=== PATIENT | female | born 1995 | race Caucasian/White ===

== ENCOUNTER 2024-03-02 21:28 | Emergency (ER) | payer OTHER ==
[2024-03-02] MEDS ORDERED: ONDANSETRON 4 MG/2 ML VIAL ONE (22:56)
[2024-03-02] MEDS ORDERED: NA CHLORIDE 0.9% 1,000 ML ONE (22:57)
[2024-03-02] MEDS ORDERED: KETOROLAC 30 MG/ML INJ ONE (22:57)
[2024-03-02 23:19] LABS: Specific Gravity 1.024 (1.005-1.030); Urine Bilirubin NEGATIVE (Negative); Urine Blood Negative (Negative); Urine Clarity Clear (Clear); Urine Color Yellow (Yellow); Urine Glucose NEGATIVE (Negative); Urine Ketones NEGATIVE (Negative); Urine Microscopic Reflex YN NO UMIC; Urine Nitrite NEGATIVE (Negative); Urine Protein NEGATIVE (Negative); Urine Urobilinogen Normal (Normal); Urine pH 5.5 (5.0-7.0)
[2024-03-02 23:25] LABS: Specific Gravity 1.024 (1.005-1.030)
[2024-03-02 23:29] LABS: Absolute Eosinophils 0.1 K/uL (0-0.5); Absolute Lymphocytes (CBC) 3.2 K/uL (0.7-4.9); Absolute Monocytes 0.6 K/uL (0.1-1.3); Absolute Neutrophil 7.5 K/uL (1.8-8.0); Basophils % 0.3 % (0-1.3); Eosinophils % 0.8 % (0-4.4); Hematocrit 40.2 % (36.0-45.0); Hemoglobin 13.6 g/dL (12.0-15.0); Lymphocytes % 27.9 % (15.3-44.8); MCH 31.1 pg (27.0-35.0); MCHC 33.8 g/dL (32.0-36.0); MCV 92.1 fL (80-100); MPV 7.6 fL (7.6-11.3); Monocytes % 5.7 % (3.3-12.3); Neutrophils % 65.3 % (41.7-73.7); Platelets 329 thou/uL (152-406); RBC Red Blood Cell Count 4.36 M/uL (3.86-4.86); Red Cell Distribution Width 12.8 % (12.1-15.2)
[2024-03-02 23:36] LABS: Albumin 3.9 g/dL (3.4-5.0); Anion Gap 9.9 mEq/L (5.0-15.0); Bilirubin Total 0.3 mg/dL (0.2-1.0); Globulin 3.9 g/dL (2.3-3.5); Potassium 3.9 mEq/L (3.5-5.1); Protein, Total 7.8 g/dL (6.4-8.2)
--- NOTE | 2024-03-03 00:16 | RAD REPORT ---
EXAM: US Pelvis Transvaginal CLINICAL HISTORY: The patient is 28 years old and is Female; left pelvic pain TECHNIQUE: Real-time transvaginal pelvic ultrasound with image documentation. Transvaginal imaging was used for better evaluation of the endometrium and adnexa. COMPARISON: No relevant prior studies available. FINDINGS: UTERUS/CERVIX: The uterus measures 7.1 x 4.2 x 5.6 cm. Several nabothian cysts are noted. The end ometrium measures 0.3 cm. No myometrial mass. RIGHT OVARY: The right ovary is not visualized secondary to bowel gas. LEFT OVARY: The left ovary measures 2.7 x 2.1 x 2.3 cm. Normal arterial and venous color Doppler and spectral waveform is present. A simple left ovarian cyst measuring 1.7 cm is noted. No follow-up imaging is recommended. Normal blood flow. FREE FLUID: No free fluid. BLADDER: Empty bladder which cannot be evaluated with this probe. IMPRESSION: Unremarkable pelvic ultrasound. Electronically signed by: Lea Pablo MD 03/03/2024 12:07 AM [facility] Due to temporary technical issues with the PACS/[employer] reporting system, reports are being signed by the in-house radiologist without review as a courtesy to ensure prompt reporting the interpreting radiologist is fully responsible for the content of the report. Transcribed Date/Time: 03/03/2024 12:15 AM
--- NOTE | 2024-03-03 01:05 | RAD REPORT ---
EXAM: CT Abdomen and Pelvis With Intravenous Contrast CLINICAL HISTORY: The patient is 28 years old and is Female; ABD PAIN TECHNIQUE: Axial computed tomography images of the abdomen and pelvis with intravenous contrast. Sagittal an d coronal reformatted images were created and reviewed. This CT exam was performed using one or more of the following dose reduction techniques: automated exposure control, adjustment of the mA a nd/or kV according to patient size, and/or use of iterative reconstruction technique. COMPARISON: No relevant prior studies available. FINDINGS: LUNG BASES: Unremarkable. No mass. No consolidation. ABDOMEN: LIVER: The liver is enlarged and fatty. GALLBLADDER AND BILE DUCTS: Surgical clips are present in the right upper quadrant, consistent wi th previous cholecystectomy. PANCREAS: No ductal dilation. No mass. SPLEEN: Unremarkable. ADRENALS: Unremarkable. No mass. KIDNEYS AND URETERS: Unremarkable. The kidneys enhance symmetrically. No obstructing renal or ure teral calculus is seen. No hydronephrosis or hydroureter. No perinephric fluid or stranding. STOMACH AND BOWEL: The stomach is moderately distended with food contents. The small bowel is loc ated within the right abdomen. The colon is located within the left abdomen. Findings suggest incidental nonrotation. There is no mucosal thickening or evidence of obstruction. PELVIS: APPENDIX: The appendix is normal in caliber without surrounding inflammation. BLADDER: The bladder is moderately distended. REPRODUCTIVE: A 2.3 cm left ovarian cyst is present. No follow-up imaging is recommended. The juana mendel and right ovary are normal. ABDOMEN and PELVIS: INTRAPERITONEAL SPACE: Unremarkable. No free air. No significant fluid collection. BONES/JOINTS: No acute fracture. SOFT TISSUES: The soft tissues are normal. VASCULATURE: Unremarkable. No abdominal aortic aneurysm. LYMPH NODES: Unremarkable. No enlarged lymph nodes. IMPRESSION: No acute findings on this contrasted CT of the abdomen and pelvis to explain the patient's symptoms . Electronically signed by: Lea Pablo MD 03/03/2024 01:00 AM CDT RP Due to temporary technical issues with the PACS/[employer] reporting system, reports are being kerry d by the in-house radiologist without review as a courtesy to ensure prompt reporting the interpreting radiologist is fully responsible for the content of the report. Transcribed Date/Time: 03/03/2024 1:05 AM
--- NOTE | 2024-03-03 01:11 | ER ---
Nurse's Notes [facility] Name: Yenny Waters Age: 28 yrs Sex: Female : 1995 Arrival Date: 03/02/2024 Time: 21:28 Bed 11 Private MD: Diagnosis: Other and unspecified ovarian cysts;Left ovarian cyst, Acute left pelvic pain Presentation: 03/02 21:46 Chief complaint: Patient states: left lower quadrant abdominal pain ever since getting ha1 a new control device. 21:46 Coronavirus screen: Vaccine status: Patient reports being unvaccinated. Ebola Screen: ha1 No symptoms or risks identified at this time. Initial Sepsis Screen: Does the patient meet any 2 criteria? No. Patient's initial sepsis screen is negative. Does the patient have a suspected source of infection? No. Patient's initial sepsis screen is negative. Risk Assessment: Do you want to hurt yourself or someone else? Patient reports no desire to harm self or others. Onset of symptoms was March 02, 2024. 21:46 Method Of Arrival: Ambulatory ha1 21:46 Acuity: CHASIDY 3 ha1 Triage Assessment: 21:46 General: Appears comfortable, Behavior is calm, cooperative. Pain: Complains of pain in ha1 left lower quadrant Pain does not radiate. Pain currently is 8 out of 10 on a pain scale. Quality of pain is described as crampy. Neuro: Level of Consciousness is awake, alert, obeys commands, Oriented to person, place, time, situation. Cardiovascular: Capillary refill < 3 seconds Patient's skin is warm and dry. Respiratory: Airway is patent Respiratory effort is even, unlabored, Respiratory pattern is regular, symmetrical. GI: Abdomen is flat, non-distended, Reports lower abdominal pain. 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 - Infectious Disease History:: Denies. - Social history:: Smoking status: Patient denies any tobacco usage or history of. - Family history:: not pertinent. Screenin:32 [facility] ED Fall Risk Assessment (Adult) History of falling in the last 3 months, lg3 including since admission No falls in past 3 months (0 pts) Confusion or Disorientation No (0 pts) Intoxicated or Sedated No (0 pts) Impaired Gait No (0 pts) Mobility Assist Device Used No (0 pt) Altered Elimination No (0 pt) Score/Fall Risk Level 0 - 2 = Low Risk Oriented to surroundings, Maintained a safe environment, Educated pt \T\ family on fall prevention, incl call for assistance when getting out of bed, Assessed \T\ reinforced patient's understanding of fall precautions. Abuse screen: Denies threats or abuse. Denies injuries from another. Nutritional screening: No deficits noted. Tuberculosis screening: No symptoms or risk factors identified. Assessment: 23:32 General: Appears in no apparent distress. comfortable, Behavior is calm, cooperative. lg3 Pain: Complains of pain in left lower quadrant Pain does not radiate. Pain currently is 4 out of 10 on a pain scale. Quality of pain is described as crampy. Neuro: No deficits noted. Miller Agitation-Sedation Scale (RASS): 0 - Alert and Calm Level of Consciousness is awake, alert, obeys commands, Oriented to person, place, time, situation. Cardiovascular: No deficits noted. Denies chest pain, shortness of breath, Capillary refill < 3 seconds Clubbing of nail beds is absent JVD is absent Patient's skin is warm and dry. Respiratory: No deficits noted. Airway is patent Respiratory effort is even, unlabored, Respiratory pattern is regular, symmetrical. GI: No deficits noted. Abdomen is flat, non-distended, Bowel sounds present X 4 quads. Abd is soft X 4 quads Abdomen is tender to palpation in left lower quadrant. : No deficits noted. No signs and/or symptoms were reported regarding the genitourinary system. EENT: No deficits noted. No signs and/or symptoms were reported regarding the EENT system. Derm: No deficits noted. No signs and/or symptoms reported regarding the dermatologic system. Skin is intact, is healthy with good turgor, Skin is dry, Skin is normal, Skin temperature is warm. Musculoskeletal: No deficits noted. No signs and/or symptoms reported regarding the musculoskeletal system. Circulation, motion, and sensation intact. Range of motion: intact in all extremities. 03/03 00:45 Reassessment: Patient and/or family updated on plan of care and expected duration. Pain ha1 level reassessed. Patient is alert, oriented x 3, equal unlabored respirations, skin warm/dry/pink. Patient denies pain at this time. Patient states feeling better. Patient states symptoms have improved. Vital Signs: 03/02 21:46 BP 131 / 84; Pulse 93; Resp 17 S; Temp 98.2(T); Pulse Ox 96% on R/A; Weight 63.96 kg; ha1 Height 5 ft. 4 in. ; 03/03 00:00 BP 118 / 58; Pulse 68; Resp 17 S; Pulse Ox 100% on R/A; ha1 01:00 BP 122 / 72; Pulse 78; Resp 17 S; Pulse Ox 100% on R/A; ha1 03/02 21:46 Body Mass Index 24.20 (63.96 kg, 162.56 cm) ha1 [place] Coma Score: 03:46 Eye Response: spontaneous(4). Motor Response: obeys commands(6). Verbal Response: sp4 oriented(5). Total: 15. ED Course: 03/02 21:32 Patient arrived in ED. gm2 21:38 Oz Reynolds MD is Attending Physician. sp4 21:46 Arm band placed on right wrist. ha1 22:51 Ree Campbell RN is Primary Nurse. lg3 22:57 Triage completed. ha1 23:00 Initial lab(s) drawn, by ED staff, sent to lab. Urine collected: clean catch specimen, lg3 clear. Inserted saline lock: 22 gauge in right antecubital area, using aseptic technique. Blood collected. Flushed with 10 mL NS. 23:32 Patient has correct armband on for positive identification. Placed in gown. Bed in low lg3 position. Call light in reach. Side rails up X 1. Client placed on continuous cardiac and pulse oximetry monitoring. NIBP monitoring applied. Door closed. Noise minimized. Warm blanket given. Pillow given. Family accompanied patient. 23:41 Transvaginal Study Probe In Process Unspecified. EDMS 03/03 00:33 CT Abd/Pelvis - IV Contrast Only In Process Unspecified. EDMS 01:31 No provider procedures requiring assistance completed. IV discontinued, intact, ha1 bleeding controlled, No redness/swelling at site. Pressure dressing applied. 01:32 Provided Education on: medication administration and following with OB. ha1 Administered Medications: 03/02 23:01 Drug: Ondansetron IVP 8 mg IVP once; over 2 minutes Route: IVP; Site: right antecubital;lg3 23:30 Follow up: Response: No adverse reaction; Marked relief of symptoms ha1 23:01 Drug: NS 0.9% IV 1000 ml IV at 1000 ml once; to be given as a bolus over 60 minutes lg3 Route: IV; Rate: 1000 ml; Site: right antecubital; 03/03 01:00 Follow up: Response: No adverse reaction; IV Status: Completed infusion; IV Intake: ha1 1000ml 03/02 23:02 Drug: Ketorolac IVP 30 mg IVP once Route: IVP; Site: right antecubital; lg3 23:30 Follow up: Response: No adverse reaction; Marked relief of symptoms; Pain is decreased ha1 Medication: 03/03 01:32 VIS not applicable for this client. ha1 Intake: 01:00 IV: 1000ml; Total: 1000ml. ha1 Outcome: 01:11 Discharge ordered by MD. shetty 01:31 Discharged to home ambulatory, with family, 1 01:31 Condition: stable 01:31 Discharge instructions given to patient, family, Instructed on discharge instructions, follow up and referral plans. medication usage, Demonstrated understanding of instructions, follow-up care, medications, Prescriptions given X 2, 01:33 Patient left the ED. ha1 Signatures: Dispatcher [employer] EDMS Ree Campbell RN RN lg3 Fabiola Umanzor RN RN 1 Oz Reynolds MD MD sp4 Patricia Aquino [facility]
--- NOTE | 2024-03-03 01:11 | EDPHYS ---
Physician Documentation [facility] Name: Yenny Waters Age: 28 yrs Sex: Female : 1995 Arrival Date: 03/02/2024 Time: 21:28 Bed 11 Private MD: ED Physician Oz Reynolds HPI: 03/02 21:39 This 28 yrs old Female presents to ER via Unassigned with complaints of sp4 Abdominal Pain - left side. 03/03 03:46 28-year-old female G0, P0 with history of prior cholecystectomy presents with acute sp4 left pelvic pain starting 1 month ago.. 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 - Infectious Disease History:: Denies. - Social history:: Smoking status: Patient denies any tobacco usage or history of. - Family history:: not pertinent. ROS: 03/03 03:46 Constitutional: Negative for fever, chills, and weight loss, positive today for left sp4 pelvic pain All other systems are negative, Exam: 03:46 Constitutional: This is a well developed, well nourished patient who is awake, alert, sp4 and in no acute distress. Head/Face: Normocephalic, atraumatic. Eyes: Pupils equal round and reactive to light, extra-ocular motions intact. Lids and lashes normal. Conjunctiva and sclera are not injected. Cornea within normal limits. Periorbital areas with no swelling, redness, or edema. ENT: Nares patent. No nasal discharge, no septal abnormalities noted. Tympanic membranes are normal and external auditory canals are clear. Oropharynx with no redness, swelling, or masses, exudates, or evidence of obstruction, uvula midline. Mucous membranes moist. Neck: Trachea midline, no thyromegaly or masses palpated, and no cervical lymphadenopathy. Supple, full range of motion without nuchal rigidity, or vertebral point tenderness. Chest/axilla: Normal chest wall appearance and motion. Nontender with no deformity. No lesions are appreciated. Cardiovascular: Regular rate and rhythm with a normal S1 and S2. No gallops, murmurs, or rubs. Normal PMI, no JVD. No pulse deficits. Respiratory: Lungs have equal breath sounds bilaterally, clear to auscultation and percussion. No rales, rhonchi or wheezes noted. No increased work of breathing, no retractions or nasal flaring. Abdomen/GI: Soft, with normal bowel sounds. No distension or tympany. No guarding or rebound. No evidence of tenderness throughout. Back: No spinal tenderness. No costovertebral tenderness. Skin: Warm, dry with normal turgor. Normal color with no rashes, no lesions, and no evidence of cellulitis. MS/ Extremity: Pulses equal, no cyanosis. Neurovascular intact. Full, normal range of motion. Neuro: Awake and alert, GCS 15, oriented to person, place, time, and situation. Cranial nerves II-XII grossly intact. Motor strength 5/5 in all extremities. Sensory grossly intact. Psych: Awake, alert, with orientation to person, place and time. Behavior, mood, and affect are within normal limits Vital Signs: 03/02 21:46 BP 131 / 84; Pulse 93; Resp 17 S; Temp 98.2(T); Pulse Ox 96% on R/A; Weight 63.96 kg; ha1 Height 5 ft. 4 in. ; 03/03 00:00 BP 118 / 58; Pulse 68; Resp 17 S; Pulse Ox 100% on R/A; ha1 01:00 BP 122 / 72; Pulse 78; Resp 17 S; Pulse Ox 100% on R/A; ha1 03/02 21:46 Body Mass Index 24.20 (63.96 kg, 162.56 cm) ha1 [place] Coma Score: 03:46 Eye Response: spontaneous(4). Motor Response: obeys commands(6). Verbal Response: sp4 oriented(5). Total: 15. MDM: 03/02 21:44 Medical Screening Exam initiated sp4 03/03 01:05 ED course: EXAM: CTAbdomen and Pelvis With Intravenous Contrast CLINICAL HISTORY: The sp4 patient is 28 years old and is Female; ABD PAIN TECHNIQUE: Axial computed tomography images of the abdomen and pelvis with intravenous contrast. Sagittal and coronal reformatted images were created and reviewed. This CT exam was performed using one or more of the following dose reduction techniques: automated exposure control, adjustment of the mA and/or kV according to patient size, and/or use of iterative reconstruction technique. COMPARISON: No relevant prior studies available. FINDINGS: LUNG BASES: Unremarkable. No mass. No consolidation. ABDOMEN: LIVER: The liver is enlarged and fatty. GALLBLADDER AND BILE DUCTS: Surgical clips are present in the right upper quadrant, consistent with previous cholecystectomy. PANCREAS: No ductal dilation. No mass. SPLEEN: Unremarkable. ADRENALS: Unremarkable. No mass. KIDNEYS AND URETERS: Unremarkable. The kidneys enhance symmetrically. No obstructing renal or ureteral calculus is seen. No hydronephrosis or hydroureter. No perinephric fluid or stranding. STOMACH AND BOWEL: The stomach is moderately distended with food contents. The small bowel is located within the right abdomen. The colon is located within the left abdomen. Findings suggest incidental nonrotation. There is no mucosal thickening or evidence of obstruction. PELVIS: APPENDIX: The appendix is normal in caliber without surrounding inflammation. BLADDER: The bladder is moderately distended. REPRODUCTIVE: A 2.3 cm left ovarian cyst is present. No follow-up imaging is recommended. The uterus and right ovary are normal. ABDOMEN and PELVIS: INTRAPERITONEAL SPACE: Unremarkable. No free air. No significant fluid collection. BONES/JOINTS: No acute fracture. SOFT TISSUES: The soft tissues are normal. VASCULATURE: Unremarkable. No abdominal aortic aneurysm. LYMPH NODES: Unremarkable. No enlarged lymph nodes. IMPRESSION: No acute findings on this contrasted CT of the abdomen and pelvis to explain the patient's symptoms. . 03:46 Differential diagnosis: appendicitis, diverticulitis, Dysmenorrhea, Endometriosis, sp4 Ovarian Torsion. Data reviewed: vital signs, nurses notes, radiologic studies, CT scan, ultrasound. Consideration of Admission/Observation Escalation of care including admission/observation considered. ED course: Pain has improved. Patient stable for discharge home. Advised follow-up with MATHEMATICAL TECHNICIAN for repeat ultrasound of the left ovarian cyst. 03/02 21:44 Order name: CBC with Diff; Complete Time: 00: sp4 03/02 21:44 Order name: CMP; Complete Time: 00: sp4 03/02 21:44 Order name: Lipase; Complete Time: 00:21 sp4 03/02 21:44 Order name: Test, Urine; Complete Time: 00: sp4 03/02 21:44 Order name: Urinalysis w/ reflexes; Complete Time: 00:21 sp4 03/02 22:01 Order name: CT Abd/Pelvis - IV Contrast Only sp4 03/02 22:05 Order name: Transvaginal Study Probe EDMS 03/02 21:44 Order name: IV Saline Lock; Complete Time: 23:02 sp4 03/02 21:44 Order name: Labs collected and sent; Complete Time: 23:02 sp4 Administered Medications: 03/02 23:01 Drug: Ondansetron IVP 8 mg IVP once; over 2 minutes Route: IVP; Site: right antecubital;lg3 23:30 Follow up: Response: No adverse reaction; Marked relief of symptoms ha1 23:01 Drug: NS 0.9% IV 1000 ml IV at 1000 ml once; to be given as a bolus over 60 minutes lg3 Route: IV; Rate: 1000 ml; Site: right antecubital; 03/03 01:00 Follow up: Response: No adverse reaction; IV Status: Completed infusion; IV Intake: ha1 1000ml 03/02 23:02 Drug: Ketorolac IVP 30 mg IVP once Route: IVP; Site: right antecubital; lg3 23:30 Follow up: Response: No adverse reaction; Marked relief of symptoms; Pain is decreased ha1 Disposition: 03/03 03:50 Chart complete. sp4 Disposition Summary: 03/03/24 01:11 Discharge Ordered Notes: Location: Home sp4 Problem: new sp4 Symptoms: have improved sp4 Condition: Stable sp4 Diagnosis - Other and unspecified ovarian cysts sp4 - Left ovarian cyst, Acute left pelvic pain sp4 Followup: sp4 - With: Private Physician - When: 7 - 10 days - Reason: Recheck today's complaints Discharge Instructions: - Discharge Summary Sheet sp4 - Ovarian Cyst, [id number] sp4 Forms: - Patient Portal Instructions sp4 Prescriptions: - Ibuprofen 600 mg Oral Tablet - take 1 tablet ORAL route every 6 hours As needed take with food; 30 tablet; sp4 Refills: 0, Product Selection Permitted - ondansetron 8 mg Oral Tablet,disintegrating - take 1 tablet ORAL route every 8 hours PRN nausea; 30 tablet; Refills: 0, sp4 Product Selection Permitted Signatures: Dispatcher [employer] Ree Mccray RN RN lg3 Fabiola Umanzor RN RN ha1 Oz Reynolds MD MD sp4 Corrections: (The following items were deleted from the chart) 03/02 22:01 22:01 Abdomen Pelvis W Con+CT.RAD.BRZ ordered. EDMS EDMS 22:05 21:59 Pelvis Complete+US.RAD.BRZ ordered. EDMS EDMS
[2024-03-03 03:38] VITALS: TEMP 98.2
[2024-03-03 03:43] VITALS: BP 122/72; O2SAT 100
== END 2024-03-03 01:33 | disposition home or self-care (01) ==
LOC: ER 21:28
DX: N83.292 Other ovarian cyst, left side (principal)
CPT/HCPCS: 96361; 85025; 36415; 81025; 81003; 83690; 80053; 74177; 76830; 96375; 96374; 99284; Q9967; J2405; J7030